=== PATIENT | female | born 1970 | race African-American/Black ===

== ENCOUNTER → 2019-05-13 | Outpatient (CLI) | payer BC | END | disposition home or self-care (01) | LOC: RAH 14:42 | PROVIDERS: ATTEND Family Medicine | DX: Z12.31 Encounter for screening mammogram for malignant neoplasm of breast (principal) | CPT/HCPCS: 77067 ==

== ENCOUNTER → 2022-04-11 | Outpatient (CLI) | payer BC | END | disposition home or self-care (01) | LOC: RAH 08:19 | PROVIDERS: ATTEND Family Medicine | DX: Z12.31 Encounter for screening mammogram for malignant neoplasm of breast (principal) | CPT/HCPCS: 77067 ==

== ENCOUNTER → 2023-07-25 | Outpatient (CLI) | payer BC | END | disposition home or self-care (01) | LOC: RAH 10:01 | PROVIDERS: ATTEND Family Medicine | DX: R92.333 Mammographic heterogeneous density, bilateral breasts (principal); N64.4 Mastodynia | CPT/HCPCS: 77066 ==